=== PATIENT | female | born 2000 | race Caucasian/White ===

== ENCOUNTER 2020-07-20 05:32 | Outpatient (CLI) | payer OTHER ==
[~2020-07-20] VITALS: Ht 167.7 cm; Wt 52.3 kg
== END 2020-07-20 12:49 | disposition home or self-care (01) ==
LOC: PREOP 05:32 → EDSTATUS 11:00 → PREOP 12:49
PROVIDERS: ATTEND Otolaryngology Otolaryngology/Facial Plastic Surgery
DX: Z01.818 Encounter for other preprocedural examination (principal)

== ENCOUNTER 2020-07-27 06:07 | Day surgery (SDC) | payer OTHER ==
[2020-07-27] VITALS (7 sets, daily range): BP systolic 103–116; BP diastolic 69–86
[~2020-07-27] VITALS: Ht 167.7 cm; Wt 52.3 kg
[2020-07-27] MEDS ORDERED: MIDAZOLAM 2 MG/2 ML (VERSED) VIAL ONE (06:32)
[2020-07-27] MEDS ORDERED: ONDANSETRON 4 MG/2 ML (SDV) Z0FRAN ONE (06:32)
[2020-07-27] MEDS ORDERED: LIDOCAINE PF 2% 5 ML (XYLOCAINE) VIAL ONE (06:32)
[2020-07-27] MEDS ORDERED: proPOfol 200 MG/20 ML (DIPRIVAN) VIAL IV ONE (06:32)
[2020-07-27] MEDS ORDERED: fentaNYL INJ 100 MCG/2 ML AMP ONE (06:32)
[2020-07-27] MEDS ORDERED: SEVOFLURANE (ULTANE) 15 ML INHAL SOLN ONE (06:34)
[2020-07-27 06:47] LABS: BASOPHILS % (AUTO) 1 % (0-10); EOSINOPHILS # (AUTO) 0.1 10^3/uL (0.0-0.3); EOSINOPHILS % (AUTO) 2 % (0-10); HEMATOCRIT 42 % (35-52); HEMOGLOBIN 13.8 g/dL (11.5-16.0); LYMPHOCYTES # (AUTO) 1.9 10^3/uL (1.0-4.0); LYMPHOCYTES % (AUTO) 32 % (12-44); MEAN CORPUSCULAR HEMOGLOBIN 29 pg (25-34); MEAN CORPUSCULAR HGB CONC 33 g/dL (32-36); MEAN CORPUSCULAR VOLUME 87 fL (80-99); MEAN PLATELET VOLUME 9.8 fL (9.0-12.2); MONOCYTES # (AUTO) 0.7 10^3/uL (0.0-1.0); MONOCYTES % (AUTO) 12 % (0-12); NEUTROPHILS # (AUTO) 3.2 10^3/uL (1.8-7.8); NEUTROPHILS % (AUTO) 53 % (42-75); PLATELET COUNT 346 10^3/uL (130-400)
[2020-07-27] MEDS ORDERED: GLYCOPYRROLATE 0.2 MG/ML (ROBINUL) 2 ML VIAL ONE (06:55)
[2020-07-27] MEDS ORDERED: ROCURONIUM 10 MG/ML 5 ML SYRINGE IV ONE (06:55)
[2020-07-27] MEDS ORDERED: NEOSTIGMINE 3 MG/3 ML VIAL ONE (06:55)
--- NOTE | 2020-07-27 06:56 | Progress Note-Pre Operative ---
Pre-Operative Progress Note H&P Reviewed The H&P was reviewed, patient examined and no changes noted. Date Seen by Provider: Jul 27, 2020 Time Seen by Provider: 06:30 Date H&P Reviewed: Jul 27, 2020 Time H&P Reviewed: 06:30 Pre-Operative Diagnosis: Rec Tons/ Tonsillar Hypertrophy NANCY WHITE MD Jul 27, 2020 06:55
[2020-07-27] MEDS ORDERED: L-NO1TBD14 PO (07:11)
[2020-07-27] MEDS ORDERED: LACTATED RINGERS 1,000 ML IV PRN (07:15)
--- NOTE | 2020-07-27 08:01 | Progress Note-Post Operative ---
Post-Operative Progess Note Surgeon (s)/News Operations Manager (s) Surgeon NANCY WHITE MD News Operations Manager n/a Pre-Operative Diagnosis Rec Tons/ Tonsillar Hypertrophy Post-Operative Diagnosis same Post-Op Procedure Note Date of Procedure: Jul 27, 2020 Name of Procedure Performed: T/A Description & Findings Description and Findings: n/a Anesthesia Type get Estimated Blood Loss minimal Packing none. Specimen(s) collected/removed tonsils NANCY WHITE MD Jul 27, 2020 08:01
[2020-07-27] MEDS ORDERED: morphine INJ 10 MG/ML 1ML (SYR OR VIAL) IVP ONE (08:15)
[2020-07-27] MEDS ORDERED: HYDROcodone/APAP 7.5MG-325 MG/15 ML (LORTAB) UDC PO PRN (08:15)
[2020-07-27] MEDS ORDERED: APAP 325 MG/10.15 ML LIQ (TYLENOL) UDC PO PRN (08:15)
[2020-07-27] MEDS ORDERED: NS IV 1000 ML 1,000 ML IV SCH (08:15)
[2020-07-27] MEDS ORDERED: HYDROmorphone 2 MG/ML VIAL (DILAUDID) IV ONE (08:15)
[2020-07-27] MEDS ORDERED: ONDANSETRON 4 MG/2 ML (SDV) Z0FRAN IVP PRN (08:15)
[2020-07-27] MEDS ORDERED: TETRACAINESUCKERS MT (09:47)
[2020-07-27] MEDS ORDERED: HYDR15SO8 PO (09:47)
[2020-07-27] MEDS ORDERED: DEXAINTSOL PO (09:47)
[2020-07-27] MEDS ORDERED: AMOX250S5 PO (09:47)
--- NOTE | 2020-07-27 10:39 | Anesthesia-General Post-Op ---
General Patient Condition Mental Status/LOC: Same as Preop Cardiovascular: Satisfactory Nausea/Vomiting: Absent Respiratory: Satisfactory Pain: Controlled Complications: Absent Post Op Complications Complications None Follow Up Care/Instructions Patient Instructions None needed. Anesthesia/Patient Condition Patient Condition Patient was seen after the procedure and she was doing well, no complaints, stable vital signs, no apparent adverse anesthesia problems. CLARA ANGULO DO Jul 27, 2020 10:39
== END 2020-07-27 11:10 | disposition home or self-care (01) ==
LOC: SDC 06:07
PROVIDERS: ATTEND Otolaryngology Otolaryngology/Facial Plastic Surgery
DX: J03.91 Acute recurrent tonsillitis, unspecified (principal); Z83.3 Family history of diabetes mellitus
CPT/HCPCS: 36415; 84703; 85025; 87081; 88304